=== PATIENT | female | born 1980 ===

== ENCOUNTER 2019-12-12 09:11 | Emergency (ER) | payer OTHER ==
[2019-12-12 09:27] VITALS: BP 98/62
--- NOTE | 2019-12-12 09:33 | UC ---
FLU HPI - HPI Summary HPI Summary: 39 year old female with no PMH presents with cold, cough symptoms. , son and daughter with similar symptoms since last week, all seen at Dr. Donis with vial illness. Patients symptoms started on 12/07. + sinus congestion, MARIEE , cough, chest tightness with coughing, chills/ night sweats. no improvement over past few days. tactile fever. + SOB at times, no h/o asthma. clogged ears - History of Current Complaint Chief Complaint: UCGeneralIllness Stated Complaint: CONGESTED Time Seen by Provider: 12/12/19 09:32 Hx Obtained From: Patient Hx Last Menstrual Period: 11/25/19 ?: No Onset/Duration: Sudden Onset Pain Intensity: 0 Pain Scale Used: 0-10 Numeric - Allergy/Home Medications Allergies/Adverse Reactions: Allergies Allergy/AdvReac Type Severity Reaction Status Date / Time No Known Allergies Allergy Verified 12/12/19 09:18 Home Medications: Home Medications Albuterol HFA INHALER* [Ventolin HFA Inhaler*] 1 - 2 puff INH Q4H PRN #1 mdi 12/01 [Rx] Amoxicillin/Clavulanate TAB* [Augmentin TAB 875*] 875 mg PO BID #20 tab [Rx] Benzonatate CAP* [Tessalon 100 MG CAP*] 100 mg PO TID #20 cap 12/12/19 [Rx] Ibuprofen TAB* [Motrin TAB* 600 MG] 600 mg PO Q6H PRN 12/12/19 [History Confirmed 12/12/19] PMH/Surg Hx/FS Hx/Imm Hx Previously Healthy: Yes - Surgical History Surgical History: Yes Surgery Procedure, Year, and Place: c-sections 2 - Family History Known Family History: Positive: Non-Contributory - Social History Alcohol Use: Rare Substance Use Type: None Smoking Status (MU): Former Smoker Length of Time of Smoking/Using Tobacco: 6 years When Did the Patient Quit Smoking/Using Tobacco: 2011 Review of Systems All Other Systems Reviewed And Are Negative: Yes Constitutional: Positive: Fever ENT: Positive: Sore Throat, Ear Ache, Nasal Discharge, Sinus Congestion, Sinus Pain/Tenderness Respiratory: Positive: Shortness Of Breath, Cough Cardiovascular: Positive: Chest Pain Neurological/Mental Status: Positive: Negative Psychological: Positive: Negative Is Patient Immunocompromised?: No Physical Exam Triage Information Reviewed: Yes Appearance: No Pain Distress, Well-Nourished, Ill-Appearing - minimal Vital Signs: Initial Vital Signs Temp 97.9 F 12/12/19 09:20 Pulse 74 12/12/19 09:20 Resp 18 12/12/19 09:20 BP 98/62 12/12/19 09:20 Pulse Ox 98 12/12/19 09:20 Vital Signs Reviewed: Yes Eyes: Positive: Conjunctiva Clear ENT: Positive: Pharynx normal, TMs normal, Sinus tenderness. Negative: Pharyngeal erythema, Tonsillar swelling, Tonsillar exudate, Uvula midline Neck: Positive: Supple, Nontender, No Lymphadenopathy Respiratory: Positive: Chest non-tender, Lungs clear, Normal breath sounds, No respiratory distress, No accessory muscle use Cardiovascular: Positive: RRR, No Murmur Musculoskeletal: Positive: Strength Intact Neurological: Positive: Alert Flu Course/Dx - Course Course Of Treatment: - Increase fluid intake - Humidifier at night to help with coughing - Good Hygiene, hand washing to prevent spread - Over the counter medications for symptoms - Motrin/ Tylenol as needed for pain, fever - Tesalon perles to help with cough as needed up to three times a day - ALbuterol inhaler every 4 hours as needed for shortness of breath, cough. - Antibiotics as directed - start tomorrow if no improvement in your symptoms - Differential Dx/Diagnosis Provider Diagnosis: Sinusitis Discharge ED - Sign-Out/Discharge Documenting (check all that apply): Patient Departure All imaging exams completed and their final reports reviewed: No Studies - Discharge Plan Condition: Fair Disposition: HOME Prescriptions: Albuterol HFA INHALER* [Ventolin HFA Inhaler*] 1 - 2 puff INH Q4H PRN #1 mdi PRN Reason: shortness of breath, cough Amoxicillin/Clavulanate TAB* [Augmentin TAB 875*] 875 mg PO BID #20 tab Benzonatate CAP* [Tessalon 100 MG CAP*] 100 mg PO TID #20 cap Patient Education Materials: Sinusitis (ED) Referrals: No Primary Care Phys,NOPCP [Primary Care Provider] - [facility] [Outside] Additional Instructions: - Increase fluid intake - Humidifier at night to help with coughing - Good Hygiene, hand washing to prevent spread - Over the counter medications for symptoms - Motrin/ Tylenol as needed for pain, fever - Fili ramirez to help with cough as needed up to three times a day - ALbuterol inhaler every 4 hours as needed for shortness of breath, cough. - Antibiotics as directed - start tomorrow if no improvement in your symptoms - Billing Disposition and Condition Condition: FAIR Disposition: Home
== END 2019-12-12 10:00 | disposition home or self-care (01) ==
LOC: UCEAST 09:11
DX: R05 Cough (principal); J00 Acute nasopharyngitis [common cold]; Z87.891 Personal history of nicotine dependence; R50.9 Fever, unspecified; R06.02 Shortness of breath; R51 Headache; R07.89 Other chest pain
CPT/HCPCS: 99212; G0463